=== PATIENT | male | born 1965 | race Caucasian/White ===

== ENCOUNTER 2016-10-24 16:52 | Emergency (ER) | payer OTHER ==
[2016-10-24 19:53] LABS: CREATININE 0.6 mg/dL (0.7-1.2); POTASSIUM 3.5 mmol/L (3.5-5.1)
[2016-10-24 19:58] LABS: BASOPHIL 0.3 % (0-2); EOSINOPHIL 0.4 % (0-5); HCT 41.3 % (42.0-52.0); HGB 14.6 g/dl (13.2-18.0); LYMPHOCYTE 8.2 % (15-48); MCH 35.2 pg (25.0-31.0); MCHC 35.4 g/dL (32.0-36.0); MCV 99.5 fL (78.0-100.0); MONOCYTE 8.6 % (0-12); MPV 9.1 fL (6.0-9.5); NEUTROPHIL 82.5 % (41-80); PLT 262 K/uL (150-400); RBC 4.15 M/uL (4.70-6.00); RDW 14.1 % (11.5-14.0); WBC 11.3 K/uL (4.0-10.5)
== END 2016-10-24 22:50 | disposition other institution (70) ==
LOC: FER 16:52
PROVIDERS: Internal Medicine
DX: S11.81XA Laceration without foreign body of other specified part of neck, initial encounter (principal); W20.8XXA Other cause of strike by thrown, projected or falling object, initial encounter; Y92.007 Garden or yard of unspecified non-institutional (private) residence as the place of occurrence of the external cause; Z23 Encounter for immunization
CPT/HCPCS: 36415; 70490; 70491; 70492; 80048; 85025; 90471; 90715; Q9967